=== PATIENT | female | born 1965 | race Caucasian/White ===

== ENCOUNTER 2017-04-30 13:17 | Emergency (ER) | payer SELFPAY ==
[~2017-04-30] VITALS: Ht 157.5 cm; Wt 100.0 kg
[2017-04-30] MEDS ORDERED: ALBU0.63 NEB (13:41)
[2017-04-30] MEDS ORDERED: MORPHINE SULFATE 4 MG/ML, 1ML ONE ×2 (13:51→14:59)
[2017-04-30] MEDS ORDERED: ONDANSETRON 2MG/ML, 2ML ONE (13:51)
[2017-04-30] MEDS ORDERED: SODIUM CHLORIDE FLUSH 10ML SYR IVF ONE (14:00)
[2017-04-30] MEDS ORDERED: ONDANSETRON 2MG/ML, 2ML IVPush ONE (14:00)
[2017-04-30] MEDS: MORPHINE SULFATE 4 MG/ML, 1ML IVPush PRN ×2 (14:02→15:08)
[2017-04-30 14:22] LABS: ASPARTATE AMINO TRANSFERASE 26 U/L (15-37); BLOOD UREA NITROGEN 9 mg/dL (7-18)
[2017-04-30 15:10] VITALS: BP 109/82
== END 2017-04-30 15:36 | disposition home or self-care (01) ==
LOC: ED 13:35
DX: L03.115 Cellulitis of right lower limb (principal); J45.909 Unspecified asthma, uncomplicated; K21.9 Gastro-esophageal reflux disease without esophagitis; K43.9 Ventral hernia without obstruction or gangrene; Z59.0 Homelessness
CPT/HCPCS: 36415; 80053; 83880; 85025; 87040; 93970; 96374; 96375; 96376; 99285; J2405

== ENCOUNTER 2021-06-12 21:52 | Inpatient (IN) | payer MEDICARE, OTHER ==
[~2021-06-12] VITALS: Ht 157.5 cm; Wt 107.7 kg
[~2021-06-12 21:52] MED LIST: ALBU0.63 NEB
[2021-06-12] MEDS ORDERED: SODIUM CHLORIDE 0.9% 1,000ML IVBOLUS ONE ×2 (22:30→23:00)
--- NOTE | 2021-06-12 22:40 | NUR ---
BLOOD CULTURES X 2 HAVE BEEN DRAWN.
[2021-06-12 23:00] LABS: BASOPHILS % (AUTO) 0 % (0-1); EOSINOPHILS % (AUTO) 1 % (1-7); LYMPHOCYTES % (AUTO) 11 % (22-44); MEAN CORPUSCULAR HEMOGLOBIN 27.9 pg (27.0-34.8); MEAN CORPUSCULAR HGB CONC 33.4 g/dL (32.4-35.8); MEAN PLATELET VOLUME 7.9 fL (7.4-10.4); MONOCYTES % (AUTO) 6 % (2-9); NEUTROPHILS % (AUTO) 82 % (42-75); PLATELET COUNT 294 x10^3/uL (130-400); RED BLOOD COUNT 4.82 x10^6/uL (3.82-5.3); RED CELL DISTRIBUTION WIDTH 17.5 % (9.6-15.2)
[2021-06-12] MEDS ORDERED: CEFTRIAXONE 1,000 MG in DEXTROSE 5% 50 ML IVPB ONE (23:00)
[2021-06-12] MEDS ORDERED: AZITHROMYCIN 500 MG in SODIUM CHLORIDE 0.9% 250 ML IV ONE (23:00)
[2021-06-12] MEDS ORDERED: ACETAMINOPHEN 325 MG TABLET PO ONE (23:00)
[2021-06-12 23:07] LABS: ALANINE AMINOTRANSFERASE 31 U/L (12-78); ALBUMIN 2.6 g/dL (3.4-5.0); ANION GAP 8 mmol/L (5-15); CALCIUM 8.8 mg/dL (8.5-10.1); CHLORIDE 103 mmol/L (98-107); CREATININE 0.79 mg/dL (0.55-1.02)
[2021-06-12 23:11] LABS: MICROSCOPIC NOT IND
[2021-06-12 23:12] LABS: ALKALINE PHOSPHATASE 259 U/L (45-117); BILIRUBIN,TOTAL 0.8 mg/dL (0.2-1.0); TOTAL PROTEIN 8.1 g/dL (6.4-8.2); TROPONIN I < 0.015 ng/mL (0.000-0.045)
--- NOTE | 2021-06-12 23:13 | NUR ---
PATIENT IS TOLERATING INTERVENTIONS WELL. PATIENT REMAINS LETHARGIC, UNABLE TO FOLLOW COMPLEX COMMANDS. PATIENT IS NOW REQUIRING ADDITIONAL OXYGENATION DEMANDS. AWARE.
--- NOTE | 2021-06-12 23:27 | NUR ---
ANITBIOTIC THERAPY STARTED. PATIENT TOLERATING INTERVENTIONS WELL. UPDATED ON PLAN OF CARE. PATIENT NOT COMMUNICATING FOR VERBALIZATION OF PLAN OF CARE. VSS. WILL CONTINUE TO MONITOR.
--- NOTE | 2021-06-12 23:52 | NUR ---
PATIENT RESTING IN BED, NO NOTED ADDITIONAL NEEDS AT THIS TIME. VSS. WILL CONTINUE TO MONITOR.
--- NOTE | 2021-06-13 00:16 | NUR ---
MD DEXTER AT BEDSIDE FOR EVALUATION OF PATIENT.
[2021-06-13] MEDS ORDERED: ACETAMINOPHEN 325 MG TABLET PO PRN (00:30)
[2021-06-13] MEDS ORDERED: DOCUSATE 100 MG CAPSULE PO PRN (00:30)
[2021-06-13 01:33] VITALS: BP 111/72
[2021-06-13] MEDS: ENOXAPARIN 40 MG/0.4 ML SQ SCH ×3 (02:13→22:48)
[2021-06-13 03:28] LABS: BASOPHILS % (AUTO) 1 % (0-1); EOSINOPHILS % (AUTO) 1 % (1-7); LYMPHOCYTES % (AUTO) 15 % (22-44); MEAN CORPUSCULAR HEMOGLOBIN 27.3 pg (27.0-34.8); MEAN CORPUSCULAR HGB CONC 32.5 g/dL (32.4-35.8); MEAN PLATELET VOLUME 7.7 fL (7.4-10.4); MONOCYTES % (AUTO) 5 % (2-9); NEUTROPHILS % (AUTO) 79 % (42-75); PLATELET COUNT 264 x10^3/uL (130-400); RED BLOOD COUNT 4.47 x10^6/uL (3.82-5.3); RED CELL DISTRIBUTION WIDTH 17.2 % (9.6-15.2)
[2021-06-13 03:40] LABS: ANION GAP 5 mmol/L (5-15); CALCIUM 8.2 mg/dL (8.5-10.1); CHLORIDE 106 mmol/L (98-107); CREATININE 0.65 mg/dL (0.55-1.02)
[2021-06-13 03:49] LABS: TROPONIN I < 0.015 ng/mL (0.000-0.045)
[2021-06-13] MEDS: ALBUTEROL HFA 90 MCG/SPRAY INH SCH ×4 (06:30→20:11)
[2021-06-13] MEDS: INSULIN LISPRO 100 UNITS/ML, PEN SQ-INSULIN SCH ×4 (07:00→22:15)
[2021-06-13 07:45] VITALS: BP 109/68
[2021-06-13] MEDS ORDERED: MAGNESIUM SULFATE PMX 2GM/50ML 50 ML IV ONE (08:30)
[2021-06-13 11:47] LABS: TROPONIN I < 0.015 ng/mL (0.000-0.045)
[2021-06-13 12:42] VITALS: BP 118/69
[2021-06-13] MEDS ORDERED: VANCOMYCIN 2,500 MG in SODIUM CHLORIDE 0.9% 500 ML IV ONE (16:00)
[2021-06-13] MEDS ORDERED: PHARMACOKINETIC MONITORING MC PRN (16:00)
[2021-06-13] MEDS ORDERED: PHARMACOKINETIC CONSULTATION MC ONE (16:00)
[2021-06-13] MEDS ORDERED: VANCOMYCIN PER PHARMACY MC SCH (16:00)
[2021-06-13 18:29] VITALS: BP 115/78
[2021-06-13] MEDS ORDERED: CEFTRIAXONE 1,000 MG in DEXTROSE 5% 50 ML IVPB SCH (23:00)
[2021-06-13] MEDS ORDERED: AZITHROMYCIN 500 MG in SODIUM CHLORIDE 0.9% 250 ML IV SCH (23:30)
[2021-06-14 00:22] VITALS: BP 128/66
[2021-06-14] MEDS: CEFTRIAXONE 2,000 MG in DEXTROSE 5% 50 ML IVPB SCH (02:45)
[2021-06-14] MEDS: VANCOMYCIN 2,000 MG in SODIUM CHLORIDE 0.9% 500 ML IV SCH ×2 (04:54→16:45)
[2021-06-14] MEDS: ALBUTEROL HFA 90 MCG/SPRAY INH SCH ×5 (04:56→23:55)
[2021-06-14 06:06] LABS: CREATININE 0.56 mg/dL (0.55-1.02)
[2021-06-14 06:51] VITALS: BP 103/63
[2021-06-14] MEDS: INSULIN LISPRO 100 UNITS/ML, PEN SQ-INSULIN SCH ×4 (08:13→20:05)
[2021-06-14 08:52] LABS: BASOPHILS % (AUTO) 1 % (0-1); EOSINOPHILS % (AUTO) 3 % (1-7); LYMPHOCYTES % (AUTO) 25 % (22-44); MEAN CORPUSCULAR HEMOGLOBIN 27.4 pg (27.0-34.8); MONOCYTES % (AUTO) 8 % (2-9); NEUTROPHILS % (AUTO) 63 % (42-75); PLATELET COUNT 229 x10^3/uL (130-400); RED CELL DISTRIBUTION WIDTH 17.4 % (9.6-15.2)
[2021-06-14 09:14] LABS: ALBUMIN 2.3 g/dL (3.4-5.0); ANION GAP 8 mmol/L (5-15); CALCIUM 8.6 mg/dL (8.5-10.1); CHLORIDE 110 mmol/L (98-107)
[2021-06-14 09:18] LABS: ALANINE AMINOTRANSFERASE 25 U/L (12-78); ALKALINE PHOSPHATASE 233 U/L (45-117); BILIRUBIN,TOTAL 0.5 mg/dL (0.2-1.0); TOTAL PROTEIN 7.3 g/dL (6.4-8.2)
[2021-06-14 09:53] LABS: CREATININE 0.56 mg/dL (0.55-1.02)
[2021-06-14 12:02] VITALS: BP 131/83
[2021-06-14 19:09] VITALS: BP 135/75
[2021-06-15 00:15] VITALS: BP 125/62
[2021-06-15] MEDS: ENOXAPARIN 40 MG/0.4 ML SQ SCH (00:44)
[2021-06-15] MEDS: CEFTRIAXONE 2,000 MG in DEXTROSE 5% 50 ML IVPB SCH (02:07)
[2021-06-15] MEDS ORDERED: ONDANSETRON 2MG/ML, 2ML IVPush ONE (04:30)
[2021-06-15] MEDS: VANCOMYCIN 2,000 MG in SODIUM CHLORIDE 0.9% 500 ML IV SCH (06:32)
[2021-06-15 07:30] LABS: BASOPHILS % (AUTO) 1 % (0-1); EOSINOPHILS % (AUTO) 4 % (1-7); LYMPHOCYTES % (AUTO) 19 % (22-44); MEAN CORPUSCULAR HEMOGLOBIN 27.1 pg (27.0-34.8); MEAN CORPUSCULAR HGB CONC 32.1 g/dL (32.4-35.8); MONOCYTES % (AUTO) 9 % (2-9); NEUTROPHILS % (AUTO) 67 % (42-75); PLATELET COUNT 251 x10^3/uL (130-400); RED BLOOD COUNT 4.57 x10^6/uL (3.82-5.3); RED CELL DISTRIBUTION WIDTH 17.4 % (9.6-15.2)
[2021-06-15 07:35] LABS: ALBUMIN 2.2 g/dL (3.4-5.0); CALCIUM 9.1 mg/dL (8.5-10.1); CHLORIDE 104 mmol/L (98-107)
[2021-06-15 07:40] LABS: ALANINE AMINOTRANSFERASE 32 U/L (12-78); ALKALINE PHOSPHATASE 242 U/L (45-117); ANION GAP 6 mmol/L (5-15); BILIRUBIN,TOTAL 0.5 mg/dL (0.2-1.0); CREATININE 0.61 mg/dL (0.55-1.02); TOTAL PROTEIN 7.7 g/dL (6.4-8.2)
[2021-06-15] MEDS: INSULIN LISPRO 100 UNITS/ML, PEN SQ-INSULIN SCH ×4 (08:40→19:55)
[2021-06-15 08:42] VITALS: BP 128/71
[2021-06-15] MEDS: ALBUTEROL HFA 90 MCG/SPRAY INH SCH ×3 (11:30→19:55)
[2021-06-15 12:53] VITALS: BP 132/76
[2021-06-15] MEDS: FUROSEMIDE 20 MG/2 ML IV SCH ×2 (14:47→16:08)
[2021-06-15 19:08] VITALS: BP 128/79
[2021-06-15] MEDS ORDERED: OMEP20CA20 PO (19:38)
[2021-06-15] MEDS ORDERED: OMEPRAZOLE 20 MG CAPSULE.DR PO SCH (20:00)
[2021-06-15] MEDS: SULFAMETH./TRIMETHOPRIM 10 ML in DEXTROSE 5% 250 ML IV SCH (20:32)
[2021-06-15] MEDS ORDERED: OMEP-376 PO (20:38)
[2021-06-15] MEDS ORDERED: ONDANSETRON 2MG/ML, 2ML IVPush PRN (21:00)
[2021-06-16 00:29] VITALS: BP 108/56
[2021-06-16] MEDS: ENOXAPARIN 40 MG/0.4 ML SQ SCH ×2 (00:55→01:36)
[2021-06-16] MEDS ORDERED: OMEPRAZOLE 20 MG CAPSULE.DR PO SCH (06:00)
[2021-06-16] MEDS: ALBUTEROL HFA 90 MCG/SPRAY INH SCH ×2 (06:12→10:49)
[2021-06-16] MEDS: INSULIN LISPRO 100 UNITS/ML, PEN SQ-INSULIN SCH ×2 (07:00→11:29)
[2021-06-16 07:07] LABS: BASOPHILS % (AUTO) 0 % (0-1); EOSINOPHILS % (AUTO) 4 % (1-7); LYMPHOCYTES % (AUTO) 27 % (22-44); MEAN CORPUSCULAR HEMOGLOBIN 27.5 pg (27.0-34.8); MEAN CORPUSCULAR HGB CONC 32.5 g/dL (32.4-35.8); MEAN PLATELET VOLUME 7.9 fL (7.4-10.4); MONOCYTES % (AUTO) 9 % (2-9); NEUTROPHILS % (AUTO) 60 % (42-75); PLATELET COUNT 290 x10^3/uL (130-400); RED BLOOD COUNT 4.74 x10^6/uL (3.82-5.3); RED CELL DISTRIBUTION WIDTH 17.7 % (9.6-15.2)
[2021-06-16 07:12] LABS: ALANINE AMINOTRANSFERASE 38 U/L (12-78); ALBUMIN 2.4 g/dL (3.4-5.0); ANION GAP 5 mmol/L (5-15); CALCIUM 9.4 mg/dL (8.5-10.1); CHLORIDE 103 mmol/L (98-107)
[2021-06-16 07:15] LABS: ALKALINE PHOSPHATASE 254 U/L (45-117); BILIRUBIN,TOTAL 0.6 mg/dL (0.2-1.0); CREATININE 0.53 mg/dL (0.55-1.02)
[2021-06-16 09:06] VITALS: BP 104/67
[2021-06-16] MEDS: FUROSEMIDE 20 MG/2 ML IV SCH (09:10)
[2021-06-16] MEDS: SULFAMETH./TRIMETHOPRIM 10 ML in DEXTROSE 5% 250 ML IV SCH (09:11)
[2021-06-16] MEDS ORDERED: LEVO500T8 PO (11:19)
[2021-06-16] MEDS ORDERED: LEVOFLOXACIN 500 MG TABLET PO SCH (11:30)
[2021-06-16 13:06] VITALS: BP 106/55
== END 2021-06-16 15:06 | disposition home or self-care (01) | DRG 871 ==
LOC: ED 23:51 → EDIP 23:56 → 4WST 06-13 01:20
PROVIDERS: ADMIT Internal Medicine; ATTEND Internal Medicine
PROC: 0T9B30Z Drainage of Bladder with Drainage Device, Percutaneous Approach (ICD-10-PCS; principal; 2021-06-12)
DX: A40.8 Other streptococcal sepsis (principal); J15.9 Unspecified bacterial pneumonia; G92 Toxic encephalopathy; J96.21 Acute and chronic respiratory failure with hypoxia; E87.2 Acidosis; G40.909 Epilepsy, unspecified, not intractable, without status epilepticus; J45.909 Unspecified asthma, uncomplicated; K43.9 Ventral hernia without obstruction or gangrene; Z20.822 Contact with and (suspected) exposure to COVID-19; Z99.81 Dependence on supplemental oxygen; Z88.0 Allergy status to penicillin; Z88.8 Allergy status to other drugs, medicaments and biological substances
CPT/HCPCS: 36415; 71045; 80048; 80053; 80202; 81003; 82565; 82962; 83036; 83605; 83735; 84145; 84443; 84484; 84520; 85025; 85379; 87040; 93005; 93306; 93356; 99291; G0378; J0456; J0696; J1650; J2405; J3370; J7060; U0005; J1815; J1940; J7030; J7040; J7050; U0003